=== PATIENT | male | born 1955 | race Caucasian/White ===

== ENCOUNTER 2017-02-25 08:48 | Day surgery (SDC) | payer BC ==
[2017-02-25] MEDS ORDERED: Bupivacaine 25%/EPINEPHrine/PF 30 ML ONE (08:50)
[2017-02-25] MEDS ORDERED: Lidocaine 2% 5 ML SDV ONE (10:01)
[2017-02-25] MEDS ORDERED: Propofol 200 MG/20 ML SDV ONE (10:02)
[2017-02-25] MEDS ORDERED: fentaNYL 100 MCG/2 ML SDV ONE (10:02)
[2017-02-25] MEDS ORDERED: Midazolam 1 MG/ML 2 ML SDV ONE (10:02)
--- NOTE | 2017-02-25 10:05 | PCM.PREANE ---
Preanesthetic Assessment - Anesthesia/Transfusion/Family Hx Anesthesia History: Prior Anesthesia Without Reaction Family History of Anesthesia Reaction: No Transfusion History: No Prior Transfusion(s) Intubation History: Unknown - Review of Systems General: No Symptoms Pulmonary: No Symptoms Cardiovascular: No Symptoms Gastrointestinal: No Symptoms Neurological: No Symptoms Other: Reports: None - Physical Assessment O2 Sat by Pulse Oximetry: 97 Respiratory Rate: 16 Vital Signs: Last Vital Signs Temp 36.6 C 02/25/17 09:15 Pulse 76 02/25/17 09:15 Resp 16 02/25/17 09:15 BP 118/74 02/25/17 09:15 Pulse Ox 97 02/25/17 09:15 Height: 1.93 m Weight: 108.862 kg ASA Class: 2 Mental Status: Alert & Oriented x3 Airway Class: Mallampati = 2 Dentition: Reports: Normal Dentition Thyro-Mental Finger Breadths: 3 Mouth Opening Finger Breadths: 3 ROM/Head Extension: Full Lungs: Clear to Auscultation, Normal Respiratory Effort Cardiovascular: Regular Rate, Regular Rhythm - Allergies Allergies/Adverse Reactions: Allergies Allergy/AdvReac Type Severity Reaction Status Date / Time adhesive tape Allergy Redness Verified 06/30/15 13:42 - Blood Blood Available: No - Anesthesia Plan Pre-Op Medication Ordered: None - Acknowledgements Anesthesia Type Planned: MAC Pt an Appropriate Candidate for the Planned Anesthesia: Yes Alternatives and Risks of Anesthesia Discussed w Pt/Guardian: Yes Pt/Guardian Understands and Agrees with Anesthesia Plan: Yes PreAnesthesia Questionnaire HEENT History: Reports: Other (See Below) Other HEENT History: wears glasses Cardiovascular History: Reports: Hypertension Respiratory History: Reports: None Gastrointestinal History: Reports: GERD Genitourinary History: Reports: BPH Musculoskeletal History: Reports: Arthritis, Back Pain, Chronic Neurological History: Reports: None Psychiatric History: Reports: Anxiety Endocrine/Metabolic History: Reports: None Hematologic History: Reports: None Immunologic History: Reports: None Oncologic (Cancer) History: Reports: Basal Cell Carcinoma Other Oncologic History: skin cancer to nose (melanoma ?) Dermatologic History: Reports: None - Past Surgical History Head Surgeries/Procedures: Reports: None GI Surgical History: Reports: Cholecystectomy Musculoskeletal Surgical History: Reports: Shoulder Surgery, Other (See Below) Other Musculoskeletal Surgeries/Procedures:: abraham rotator cuff repair, total replacement left shoulder with pin insertion and biceps tendon repair, rt index finger amputation Dermatological Surgical History: Reports: Skin Biopsy (nose) - SUBSTANCE USE Smoking Status *Q: Current Every Day Smoker (last 7 years) Tobacco Use Within Last Twelve Months: Cigarettes Recreational Drug Use History: No - HOME MEDS Home Medications: Home Meds Lisinopril 5 mg PO DAILY 06/30/15 [History] Aspirin [[place] Aspirin] 81 mg PO DAILY 02/22/17 [History] - CURRENT (IN HOUSE) MEDS Current Meds: Current Medications Discontinued Medications Bupivacaine HCl/Epinephrine Bitart (Sensor Mpf 0.25%-Epi [id number]) Confirm Administered Dose 30 mls @ as directed .ROUTE .STK-MED ONE Stop: 02/25/17 08:51
[2017-02-25] MEDS ORDERED: Bupivacaine 0.25%/EPINEPHrine 1:200,000 10 ML SDV INJECT ONE (12:32)
[2017-02-25] MEDS ORDERED: ceFAZolin 2 GM in Premix Bag 1 BAG IV ONE (12:32)
[2017-02-25] MEDS ORDERED: Lactated Ringers 1,000 ML IV SCH (12:45)
--- NOTE | 2017-02-25 13:25 | PCM.OPNOTE ---
- General Post-Op/Procedure Note Date of Surgery/Procedure: 02/25/17 Operative Procedure(s): left lower eyelid basal cell excision 1cm with frozen sections Pre Op Diagnosis: left lower eyelid basal cell Primary Surgeon: Louise Rajan Finance Associate: Shasha Sandoval Complications: None Condition: Good
[2017-02-25] MEDS ORDERED: fentaNYL 100 MCG/2 ML SDV IVPUSH PRN (13:55)
--- NOTE | 2017-02-25 14:41 | PCM.POSTAN ---
POST ANESTHESIA ASSESSMENT - MENTAL STATUS Mental Status: Alert - VITAL SIGNS Pulse Rate: 78 SaO2: 94 Resp Rate: 16 Blood Pressure: 128/77 Temperature: 36.5 C - RESPIRATORY Respiratory Status: Respiratory Rate WNL - CARDIOVASCULAR CV Status: Pulse Rate WNL - GASTROINTESTINAL GI Status: No Symptoms - PAIN Pain Score: 0 - POST OP HYDRATION Hydration Status: Adequate & Stable - OBSERVATIONS Free Text/Narrative:: Stable. No problems noted post
--- NOTE | 2017-02-25 14:47 | PCM48HPAN ---
Post Anesthesia Note - EVALUATION WITHIN 48HRS OF ANESTHETIC Vital Signs in Normal Range: Yes Patient Participated in Evaluation: Yes Respiratory Function Stable: Yes Airway Patent: Yes Cardiovascular Function Stable: Yes Hydration Status Stable: Yes Pain Control Satisfactory: Yes Nausea and Vomiting Control Satisfactory: Yes Mental Status Recovered: Yes - COMMENTS/OBSERVATIONS Free Text/Narrative:: Satisfactory post-op course, ready for discharge.
[2017-02-25 15:04] VITALS: BP 121/76
--- NOTE | 2017-03-03 17:43 | OR ---
SURGEON: IJEOMA GALINDO MD DATE OF PROCEDURE: 02/25/2017 PREOPERATIVE DIAGNOSIS: Left lower eyelid basal cell. POSTOPERATIVE DIAGNOSIS: Left lower eyelid basal cell. PROCEDURE: Left lower eyelid basal cell excision 1 cm with frozen section and simple closure. HUB ASSOCIATE: Shasha Sandoval. ANESTHESIA: General LMA. INDICATIONS: Mr. Zapata is a 61-year-old gentleman with a left lower eyelid basal cell carcinoma. Risks and benefits of excision were discussed with him and he was in agreement to proceed. Risks were including, but not limited to, bleeding, infection, damage to underlying or overlying structures, possible need for future interventions, and possible scarring. PROCEDURE IN DETAIL: After informed consent was obtained and placed on the chart, the patient was brought to the operating theater and laid in the supine position. After adequate level of general LMA anesthesia was obtained, the area was prepped and draped and a time-out was completed to confirm side and site. Attention was then paid to excision and the 12 o'clock position was marked and this was sent for frozen sections, meticulous hemostasis was obtained and then the wound was closed in a simple fashion using 4-0 Monocryl sutures. Once adequately closed, it was dressed with Steri-Strips. Frozen sections came back as basal cell carcinoma with margins negative and thus the closure was appropriate. No additional margins were needed. The patient tolerated the procedure well. All counts and needles were correct at the end of the case. FOLLOWUP INSTRUCTIONS: The patient will see us in 7 days, sooner if any problems, questions, or concerns. HEGGTHE / DALIAL /[id number]
== END 2017-02-25 15:05 | disposition home or self-care (01) ==
LOC: MW.SDS 08:48
PROVIDERS: ATTEND Plastic Surgery
DX: C44.319 Basal cell carcinoma of skin of other parts of face (principal); I10 Essential (primary) hypertension; F41.9 Anxiety disorder, unspecified; G89.29 Other chronic pain; M54.9 Dorsalgia, unspecified; F17.210 Nicotine dependence, cigarettes, uncomplicated; M19.90 Unspecified osteoarthritis, unspecified site; Z96.612 Presence of left artificial shoulder joint; Z90.49 Acquired absence of other specified parts of digestive tract; Z89.021 Acquired absence of right finger(s); Z98.890 Other specified postprocedural states; Z79.82 Long term (current) use of aspirin; Z79.899 Other long term (current) drug therapy; Z91.048 Other nonmedicinal substance allergy status
CPT/HCPCS: 11641; 88305; 88331; J2250; J3010; 00300; J2704